=== PATIENT | male | born 1975 | race Caucasian/White ===

== ENCOUNTER 2016-12-09 16:30 | Emergency (ER) | payer OTHER ==
[2016-12-09 16:48] VITALS: BP 106/83; PULSE 100; RESP 16; TEMP 98.8; O2SAT 98
--- NOTE | 2016-12-09 17:02 | UCPHY ---
H & P Patient Type: Established Chief Complaint Nursing Narrative: c/o chills, fever,cough, sore throat x 3 days Time Seen by Provider: 12/09/16 16:46 HPI/ROS: Chief complaint: Sore throat, cough, congestion HPI: 41-year-old male presenting with 2-3 days of upper respiratory flu-like symptoms. Symptoms started with fever to 102 and body aches. Progressed to dry cough and nasal congestion. Patient states that he is having significant amount of pain when he coughs in his throat. It hurts to swallow but coughing is worse. It is productive of whitish sputum. He is no longer having fevers or chills. His is having the exact same symptoms started the same time. His son was diagnosed with croup last week and has still having some respiratory symptoms but is doing better. No no longer having fevers or chills. No shortness of breath. No skin rash. No abdominal pain. No chest pain. ROS: 10 point Review of Systems is negative except as noted in the HPI. Physical exam: Gen: Awake, Alert, No Distress HEENT: Ears: Normal Nose: no rhinorrhea Eyes: PERRLA, EOMI Mouth: Moist mucosa diffuse pharyngeal erythema without exudate, there is some minor blistering. There is no tonsillar hypertrophy. Uvula is midline. Neck: Supple, no JVD Chest: nontender, lungs clear to auscultation Heart: S1, S2 normal, no murmur Abd: Soft, non-tender, no guarding Back: no CVA tenderness, no midline tenderness Ext: no edema, non-tender Skin: no rash Neuro: CN II-XII intact, Sensation grossly intact, Strength 5/5 in bilateral upper and lower extremities - Personal History Tetanus Vaccine Date: WITHIN 10 YRS - Medical/Surgical History Other PMH: hypothyroid, sertraline - Family History Significant Family History: No pertinent family hx - Social History Smoking Status: Never smoked Constitutional: Initial Vital Signs Temperature (C) 37.1 C 12/09/16 16:46 Heart Rate 100 12/09/16 16:46 Respiratory Rate 16 12/09/16 16:46 Blood Pressure 106/83 H 12/09/16 16:46 O2 Sat (%) 98 12/09/16 16:46 O2 Delivery Mode Room Air Allergies/Adverse Reactions: No Known Allergies Allergy (Unverified 06/29/14 09:45) Home Medications: Medication Instructions Recorded Hydrocodone/Acetaminophen 1 - 2 each PO Q4-6PRN PRN #10 12/09/16 [Hydrocodon-Acetaminophen 5-325] tablet Levothyroxine 12/09/16 Sertraline HCl 12/09/16 Medical Decision Making - Data Points Laboratory Results: 12/09/16 12/09/16 Unknown 16:58 Group A Strep Screen NEGATIVE (NEGATIVE) Group A Strep DNA Pending Departure - Departure Disposition: Home, Routine, Self-Care Clinical Impression: Pharyngitis, Upper respiratory infection Condition: Good Instructions: Pharyngitis (ED), Viral Syndrome (ED) Additional Instructions: Follow up with her primary care physician in 3-4 days if symptoms are not improving. Referrals: Lake Cobb MD [Primary Care Provider] - As per Instructions Prescriptions: Hydrocodone/Acetaminophen [Hydrocodon-Acetaminophen 5-325] 1 - 2 each PO Q4- 6PRN PRN #10 tablet PRN Reason: Pain, Severe - PQRS PQRS Measurement: NA
== END 2016-12-09 17:59 | disposition home or self-care (01) ==
LOC: CED 16:30
DX: J02.9 Acute pharyngitis, unspecified (principal); J06.9 Acute upper respiratory infection, unspecified; E03.9 Hypothyroidism, unspecified
CPT/HCPCS: 87880-PO; G0463-PO